=== PATIENT | female | born 1975 | race Caucasian/White ===

== ENCOUNTER 2016-10-19 10:10 | Emergency (ER) | payer OTHER ==
[~2016-10-19] VITALS: Ht 160 cm; Wt 144.3 kg
[~2016-10-19 10:10] MED LIST: AMLO10TA2 PO; CHOL1000 PO; FLUT0.15 NAE; HYDR25TA4 PO; LISI40TA PO; PROP60CA5 PO
[2016-10-19 10:13] VITALS: TEMP 36.6; Ht 160 cm; Wt 144.3 kg
[2016-10-19] MEDS ORDERED: CETI10TA10 PO (10:26)
--- NOTE | 2016-10-19 11:28 | DIAGNOSTIC IMAGING REPORT ---
CHEST ONE VIEW PORTABLE CLINICAL HISTORY: Hypertension COMPARISON STUDY: No previous studies for comparison. FINDINGS: The patient is rotated. No pneumothorax or pleural effusion is present. There is no consolidation. Mild cardiomegaly is noted. Pulmonary vascularity is within normal limits. IMPRESSION: 1. No acute cardiopulmonary findings. 2. Mild cardiomegaly. 3. Rotated study. Electronically signed by: Humphrey Joseph M.D. 10/19/2016 11:27 AM Dictated Date/Time: 10/19/2016 11:26 AM
[2016-10-19 12:02] LABS: BASO % 0.5 %; BASO ABS # 0.03 K/uL (0-0.2); COMPLETE YES; EOS % 7.6 %; IG% 0.3 %; LYMPH % 25.9 %; LYMPH ABS # 1.59 K/uL (1.2-3.4); MEAN CELL VOLUME 84.3 fL (80-100); MEAN CORPUSCULAR HEMOGLOBIN 26.8 pg (25-34); MEAN CORPUSCULAR HGB CONC 31.8 g/dl (32-36); MEAN PLATELET VOLUME 9.3 fL (7.4-10.4); MONO % 8.5 %; NEUT % 57.2 %; PLATELET COUNT 257 K/uL (130-400); RED BLOOD COUNT 4.51 M/uL (4.2-5.4); WHITE BLOOD COUNT 6.15 K/uL (4.8-10.8)
[2016-10-19 12:20] LABS: BUN/CREATININE RATIO 16.4 (10-20); CALCIUM 8.9 mg/dl (8.5-10.1); CREATININE 0.72 mg/dl (0.60-1.20); MAGNESIUM 2.3 mg/dl (1.8-2.4); POTASSIUM 3.4 mmol/L (3.5-5.1)
[2016-10-19 12:23] LABS: ALB/GLOB RATIO 0.9 (0.9-2)
[2016-10-19 12:23] LABS: URINE APPEARANCE CLEAR (CLEAR); URINE BILIRUBIN NEG (NEG); URINE COLOR YELLOW; URINE NITRITE NEG (NEG); URINE PH 8.5 (4.5-7.5); URINE SPECIFIC GRAVITY 1.009 (1.000-1.030); UROBILINOGEN NEG (NEG); ZZUR CULT IF INDIC CLEAN CATCH NO
[2016-10-19 12:29] LABS: MANUAL MICROSCOPIC REQUIRED? NO; REVIEW REQ? NO
[2016-10-19 12:32] VITALS: O2SAT 95
[2016-10-19] MEDS ORDERED: ACETAMINOPHEN 500 MG TAB PO STA (12:35)
--- NOTE | 2016-10-19 12:35 | DIAGNOSTIC IMAGING REPORT ---
CT SCAN OF THE BRAIN WITHOUT IV CONTRAST CLINICAL HISTORY: Hypertension. Headache. COMPARISON STUDY: MRI of the brain dated 04/08/2009. TECHNIQUE: Unenhanced axial CT scan of the brain is performed from the vertex to the skull base. Automated dose control exposure was utilized. The skull base was scanned twice due to motion artifact. CT DOSE: 767.83 mGy.cm FINDINGS: Brain parenchyma: There are scattered foci of low-attenuation suggested within the subcortical and periventricular white matter. These was not seen on the 04/08/2009 MRI. The brain parenchyma is otherwise normal in appearance. There is no hemorrhage, mass effect, or evidence of acute territorial ischemia by CT criteria. Burnett-white matter is preserved. No extra-axial fluid collection is seen. Ventricles, sulci, cisterns: Normal in configuration. Intracranial vasculature: The visualized intracranial vasculature at the skull base is normal in appearance. Calvarium: Unremarkable. Sinuses and mastoids: The visualized paranasal sinuses are clear. The mastoid air cells are well pneumatized. Orbits: The bony orbits are grossly intact. IMPRESSION: 1. There is no hemorrhage, mass effect, or evidence of acute territorial ischemia by CT criteria. 2. There are scattered foci of diminished attenuation suggested within the subcortical and periventricular white matter. These were not appreciated on the 2008 MRI examination and may attention early represent microangiopathic change or could also be seen in the setting of a demyelinating disorder such as multiple sclerosis. Consider contrast-enhanced MRI of the brain for further assessment. Electronically signed by: Luis Doshi M.D. 10/19/2016 12:34 PM Dictated Date/Time: 10/19/2016 12:30 PM
[2016-10-19 14:30] LABS: PREG INTERNAL NEGATIVE QC NEG CLEAR BACKGROUND; PREG INTERNAL POSITIVE QC POS CONTROL LINE
--- NOTE | 2016-10-19 15:22 | DIAGNOSTIC IMAGING REPORT ---
MRI OF THE BRAIN WITHOUT AND WITH IV CONTRAST CLINICAL HISTORY: Hypertension, headaches, abnormal CT scan. COMPARISON STUDY: CT scan dated 10/19/2016, MRI the brain dated 04/08/2009 TECHNIQUE: MRI of the brain was performed from the vertex to the skull base utilizing various T1 and T2 weighted sequences. Following the IV administration of 14 mL of Gadavist contrast, additional enhanced images were obtained. FINDINGS: Sagittal T1, axial diffusion, proton density and T2 weighted axial, coronal FLAIR, and pre and post axial T1-weighted images were acquired. These were supplemented with post gadolinium coronal T1 weighted images. No intra or extra-axial mass lesions are visualized. Axial diffusion-weighted images reveal no evidence of acute or subacute infarction. There is no evidence of ventricular dilatation. Proton density T2-weighted and FLAIR images reveal multiple scattered foci of increased T2 and FLAIR signal within the periventricular and subcutaneous cortical white matter. These are new when compared the prior 2008 study. They are greater than expected for age. Likely diagnostic considerations include a demyelinating process, vasculitis, or small vessel ischemic change. There is no pathologic enhancement and no mass effect. There are no abnormal flow voids. There is no evidence of pathologic enhancement. IMPRESSION: 1. No evidence of intracranial mass 2. No evidence of acute or subacute infarction 3. Nonspecific foci of increased T2 and FLAIR signal within the white matter, greater than expected for age. Electronically signed by: Rey oMntez M.D. 10/19/2016 3:21 PM Dictated Date/Time: 10/19/2016 3:16 PM
--- NOTE | 2016-10-19 16:17 | EMERGENCY ROOM VISIT NOTE ---
History First contact with patient: 10:54 Chief Complaint: HYPERTENSION Stated Complaint: HYPERTENSION History of Present Illness The patient is a 41 year old female who presents to the Emergency Room via ambulance with complaints of "hypertension". The patient states that around 9 AM she was to follow-up with her nutrition DrJuan C constantino [facility]. She was to see Dr. Fernandez for a checkup. She states that she felt very tired, and when he checked her blood pressure it was very high and she also had a headache. She states that the blood pressure over there was 230 systolic. She notes that she has been working 7 days straight, for the past 4 weeks for roughly 16 hours per day. She states that she has not had a day off. She states that she has been tired because of the work, and is upset because she was forced to go to her employer to rest for a day off because she was tired. She states that today she woke up with a headache but notes that she frequently will get headaches. She points to the right side of her head around her ears location of pain. She follows with Dr. russell for headaches. She states she has a history of hypertension of which she takes lisinopril and propranolol. She notes that she is taking these today. She denies any history of heart problems, history of blood clots, chest pain, shortness of breath, fevers, chills, urinary symptoms, dizziness or lightheadedness. Her only symptoms currently are a headache. Review of Systems A complete 10-point Review of Systems was discussed with the patient, with pertinent positives and negatives listed in the History of Present Illness. All remaining Review of Systems questions can be considered negative unless otherwise specified. Past Medical/Surgical History Medical Problems: (1) Diab Nola Wo Compl, Type Ii Or Unspec Type, Not Uncntrld (2) Dysmetabolic Syndrome X (3) Esophageal Reflux (4) Hyperlipidemia, Unspecified (5) Hypertension Nos (6) Obesity, Nos (7) Polycystic Ovaries Family History Diabetes, hypertension, cancer, gallbladder disease. Social History Smoking Status: Never Smoker Alcohol Use: none Marital Status: single Occupation Status: employed Social History: patient is currently employed. She lives in [place]. Current/Historical Medications Scheduled Amlodipine Besylate (Norvasc), 10 MG PO DAILY Cetirizine Hcl (Zyrtec), 10 MG PO HS Fluticasone Propionate (Nasal) (Flonase Allergy Relief), 1 SPRAY LOPEZ DAILY Hydrochlorothiazide (Hctz), 25 MG PO DAILY Lisinopril (Zestril), 40 MG PO DAILY Propranolol La (Inderal La), 120 MG PO DAILY Allergies Coded Allergies: Cortisone (Unverified Allergy, Severe, THROAT SWELLING,HIVES, 10/19/16) Penicillins (Unverified Allergy, Intermediate, throat swelling, 11/28/15) Sumatriptan (Unverified Allergy, Unknown, PRESSURE IN HEAD, , 11/28/15) Physical Exam Vital Signs Date Time Temp Pulse Resp B/P Pulse Ox O2 Delivery O2 Flow Rate FiO2 10/19/16 16:32 81 16 180/115 95 Room Air 10/19/16 15:45 83 18 177/98 95 Room Air 10/19/16 13:41 79 10/19/16 13:28 166/113 10/19/16 12:32 74 16 168/94 94 Room Air 10/19/16 12:32 95 Room Air 10/19/16 11:55 208/119 10/19/16 10:19 85 10/19/16 10:13 36.6 90 22 219/121 96 Room Air Physical Exam VITAL SIGNS - Vital signs and nursing notes were reviewed. Patient is hypertensive at 219/121, afebrile, non-tachycardic and is saturating well on room air 96%. GENERAL -41-year-old female appearing her stated age who is in no acute distress. Clinically she appears nontoxic. Communicates well with provider and answers questions appropriately. SKIN - Without rashes. HEAD - NC/AT. EYES - PERRL with EOMI bilaterally. Sclera anicteric. Palpebral conjunctiva pink and moist with no injection noted. EARS - No deformities of external structures noted on gross examination bilaterally. No pain elicited with palpation of the tragus bilaterally. External auditory canals without discharge or otorrhea. Tympanic membranes pearly burnett without retraction or bulging. No fluid or purulent material visualized behind the TM. Handle of malleus, umbo, cone of light, pars tensa/ flaccid all easily visualized. NOSE - Midline and without cyanosis. No epistaxis or purulent drainage noted. Septum midline without deviation or septal hematoma noted. MOUTH/OROPHARYNX - Without perioral cyanosis. Buccal mucosa pink and moist and without leukoplakia. Tongue midline with equal elevation of palate bilaterally. No tonsillar hypertrophy, erythema, or exudates noted. fair dentition noted. NECK - Neck with FROM. Supple to palpation. No lymphadenopathy noted. No nuchal rigidity. No meningismus or signs of encephalitis. LUNGS - Chest wall symmetric without accessory muscle use, intercostals retractions, or central cyanosis. Normal vesicular breath sounds CTA B/L. No wheezes, rales, or rhonchi appreciated. CARDIAC - RRR with S1/S2. No murmur, rubs, or gallops appreciated. EXTREMITIES - No clubbing or peripheral cyanosis. No pretibial edema present. +5 /5 strength noted in UE/LE bilaterally. NEUROLOGIC - Cranial nerves II through XII grossly intact. Sensory intact to light touch throughout. Patellar reflexes +2/4. PSYCH - A&Ox3 and cooperates fully with examiner. Pt is very pleasant and interacts well with examiner. Medical Decision & Procedures ER Provider Diagnostic Interpretation: CHEST ONE VIEW PORTABLE CLINICAL HISTORY: Hypertension COMPARISON STUDY: No previous studies for comparison. FINDINGS: The patient is rotated. No pneumothorax or pleural effusion is present. There is no consolidation. Mild cardiomegaly is noted. Pulmonary vascularity is within normal limits. IMPRESSION: 1. No acute cardiopulmonary findings. 2. Mild cardiomegaly. 3. Rotated study. Electronically signed by: Humphrey Joseph M.D. 10/19/2016 11:27 AM Dictated Date/Time: 10/19/2016 11:[address] SCAN OF THE BRAIN WITHOUT IV CONTRAST CLINICAL HISTORY: Hypertension. Headache. COMPARISON STUDY: MRI of the brain dated 04/08/2009. TECHNIQUE: Unenhanced axial CT scan of the brain is performed from the vertex to the skull base. Automated dose control exposure was utilized. The skull base was scanned twice due to motion artifact. CT DOSE: 767.83 mGy.cm FINDINGS: Brain parenchyma: There are scattered foci of low-attenuation suggested within the subcortical and periventricular white matter. These was not seen on the 04/08/2009 MRI. The brain parenchyma is otherwise normal in appearance. There is no hemorrhage, mass effect, or evidence of acute territorial ischemia by CT criteria. Burnett-white matter is preserved. No extra-axial fluid collection is seen. Ventricles, sulci, cisterns: Normal in configuration. Intracranial vasculature: The visualized intracranial vasculature at the skull base is normal in appearance. Calvarium: Unremarkable. Sinuses and mastoids: The visualized paranasal sinuses are clear. The mastoid air cells are well pneumatized. Orbits: The bony orbits are grossly intact. IMPRESSION: 1. There is no hemorrhage, mass effect, or evidence of acute territorial ischemia by CT criteria. 2. There are scattered foci of diminished attenuation suggested within the subcortical and periventricular white matter. These were not appreciated on the 2009 MRI examination and may attention early represent microangiopathic change or could also be seen in the setting of a demyelinating disorder such as multiple sclerosis. Consider contrast-enhanced MRI of the brain for further assessment. Electronically signed by: Luis Doshi M.D. 10/19/2016 12:34 PM Dictated Date/Time: 10/19/2016 12:30 PM MRI OF THE BRAIN WITHOUT AND WITH IV CONTRAST CLINICAL HISTORY: Hypertension, headaches, abnormal CT scan. COMPARISON STUDY: CT scan dated 10/19/2016, MRI the brain dated 04/08/2009 TECHNIQUE: MRI of the brain was performed from the vertex to the skull base utilizing various T1 and T2 weighted sequences. Following the IV administration of 14 mL of Gadavist contrast, additional enhanced images were obtained. FINDINGS: Sagittal T1, axial diffusion, proton density and T2 weighted axial, coronal FLAIR, and pre and post axial T1-weighted images were acquired. These were supplemented with post gadolinium coronal T1 weighted images. No intra or extra-axial mass lesions are visualized. Axial diffusion-weighted images reveal no evidence of acute or subacute infarction. There is no evidence of ventricular dilatation. Proton density T2-weighted and FLAIR images reveal multiple scattered foci of increased T2 and FLAIR signal within the periventricular and subcutaneous cortical white matter. These are new when compared the prior 2008 study. They are greater than expected for age. Likely diagnostic considerations include a demyelinating process, vasculitis, or small vessel ischemic change. There is no pathologic enhancement and no mass effect. There are no abnormal flow voids. There is no evidence of pathologic enhancement. IMPRESSION: 1. No evidence of intracranial mass 2. No evidence of acute or subacute infarction 3. Nonspecific foci of increased T2 and FLAIR signal within the white matter, greater than expected for age. Electronically signed by: Rey Mnotez M.D. 10/19/2016 3:21 PM Dictated Date/Time: 10/19/2016 3:16 PM Laboratory Results 10/19/16 11:45 Red Blood Count 4.51, Mean Corpuscular Volume 84.3, Mean Corpuscular Hemoglobin 26.8, Mean Corpuscular Hemoglobin Concent 31.8, Mean Platelet Volume 9.3, Neutrophils (%) (Auto) 57.2, Lymphocytes (%) (Auto) 25.9, Monocytes (%) (Auto) 8.5, Eosinophils (%) (Auto) 7.6, Basophils (%) (Auto) 0.5, Neutrophils # (Auto) 3.52, Lymphocytes # (Auto) 1.59, Monocytes # (Auto) 0.52, Eosinophils # (Auto) 0.47, Basophils # (Auto) 0.03 10/19/16 11:45 Test 10/19/16 11:45 10/19/16 11:51 10/19/16 12:05 10/19/16 14:36 White Blood Count 6.15 K/uL (4.8-10.8) Red Blood Count 4.51 M/uL (4.2-5.4) Hemoglobin 12.1 g/dL (12.0-16.0) Hematocrit 38.0 % (37-47) Mean Corpuscular Volume 84.3 fL (80-100) Mean Corpuscular Hemoglobin 26.8 pg (25-34) Mean Corpuscular Hemoglobin Concent 31.8 g/dl (32-36) Platelet Count 257 K/uL (130-400) Mean Platelet Volume 9.3 fL (7.4-10.4) Neutrophils (%) (Auto) 57.2 % Lymphocytes (%) (Auto) 25.9 % Monocytes (%) (Auto) 8.5 % Eosinophils (%) (Auto) 7.6 % Basophils (%) (Auto) 0.5 % Neutrophils # (Auto) 3.52 K/uL (1.4-6.5) Lymphocytes # (Auto) 1.59 K/uL (1.2-3.4) Monocytes # (Auto) 0.52 K/uL (0.11-0.59) Eosinophils # (Auto) 0.47 K/uL (0-0.5) Basophils # (Auto) 0.03 K/uL (0-0.2) RDW Standard Deviation 47.3 fL (36.4-46.3) RDW Coefficient of Variation 15.4 % (11.5-14.5) Immature Granulocyte % (Auto) 0.3 % Immature Granulocyte # (Auto) 0.02 K/uL (0.00-0.02) Anion Gap 5.0 mmol/L (3-11) Est Creatinine Clear Calc Drug Dose 146.2 ml/min Estimated GFR () 121.4 Estimated GFR (Non- 104.8 BUN/Creatinine Ratio 16.4 (10-20) Calcium Level 8.9 mg/dl (8.5-10.1) Magnesium Level 2.3 mg/dl (1.8-2.4) Total Bilirubin 0.4 mg/dl (0.2-1) Aspartate Amino Transf (AST/SGOT) 50 U/L (15-37) Alanine Aminotransferase (ALT/SGPT) 78 U/L (12-78) Alkaline Phosphatase 96 U/L (45-117) Total Protein 7.9 gm/dl (6.4-8.2) Albumin 3.8 gm/dl (3.4-5.0) Globulin 4.1 gm/dl (2.5-4.0) Albumin/Globulin Ratio 0.9 (0.9-2) Human Chorionic Gonadotropin, Qual NEG (NEG) AF-Agb-F-Type Natriuretic Peptide 229 pg/ml (0-450) Urine Color YELLOW Urine Appearance CLEAR (CLEAR) Urine pH 8.5 (4.5-7.5) Urine Specific [place]wick 1.009 (1.000-1.030) Urine Protein NEG (NEG) Urine Glucose (UA) NEG (NEG) Urine Ketones NEG (NEG) Urine Occult Blood NEG (NEG) Urine Nitrite NEG (NEG) Urine Bilirubin NEG (NEG) Urine Urobilinogen NEG (NEG) Urine Leukocyte Esterase NEG (NEG) Bedside Troponin I 0.010 ng/ml (0-0.045) Test 10/19/16 16:27 Bedside Glucose 82 mg/dl (70-90) Medications Administered Medications (Trade) Dose Ordered Sig/Omari Route Start Time Stop Time Status Last Admin Dose Admin Acetaminophen (Tylenol Tab) 500 mg NOW STAT PO 10/19/16 12:35 10/19/16 12:36 DC 10/19/16 12:39 500 MG Medical Decision Patient was seen and evaluated as above. After obtaining a thorough history and physical examination IV access was initiated and the above workup was performed. Patient does have a history of hypertension and notes that typically her systolic pressure is in the 170s. Upon presentation here her systolic is 219, which is 11 points lower than from where she was retrieved by the ambulance. In review of her blood work, her CBC reveals no leukocytosis or anemia, potassium slightly low at 3.4, carbon dioxide 33, random glucose level 62, AST elevated at 50, globulin 4.1. Urine unremarkable. I do not believe that antihypertensive medication at this time is warranted she did begin to show improved blood pressure readings throughout her stay. She was initially at 219/121, and then was reevaluated and found to be 208/119, and then dropped to 168/94, and then 166/113. Because the patient stated that she typically is in the 170s I do not feel that additional medication at this time in the emergency department will be of benefit, and may actually be harmful. I do believe that being at this level is more appropriate than initial. She has already dropped over 40 systolic points since her initial reading at the office. Prior to departure she did reveal elevated to 180/115 however she never had any chest pain or shortness of breath and this is only 10 points above her typical as per subjective statement. Chest x-ray reveals mild cardiomegaly without evidence of acute process. CT scan of the head was obtained due to hypertension and headache. This did reveal a questionable abnormality therefore MRI was pursued as per recommendation by the radiologist. MRI does reveal a nonspecific foci of increased T2 and FLAIR signal within the white matter, greater than expected for age. I did discuss this my attending and we both believe that the patient should follow-up with neurology for further evaluation and management but do not believe that at this time the patient warrants inpatient management. Her EKG here reveals normal sinus rhythm with a nonspecific T-wave abnormality. There is no previous for comparison. The patient's troponin was negative 2. Discussion was had with the patient regarding inpatient admission versus discharge, and she respect we declined admission and would like to be discharged. Due to this is appropriate , however the patient does need to follow-up in the outpatient setting as soon as possible for further evaluation and management of her high blood pressure and comorbidities as she was informed that she is a high risk for stroke and heart attack. She was educated upon management today's findings, was educated on worrisome symptoms which to return, had questions answered prior to discharge and was discharged home in good condition. For her pain she was given 500 mg of acetaminophen. In the evaluation and treatment of this patient, the following differential diagnoses were considered: Concussion, Contrecoup Injury, Brain Tumor, Depression, Encephalitis, Hypothyroidism, Meningitis, CVA, TIA, Migraine, Cluster Headache, Intracranial Abnormality, Intracranial Hemorrhage, Subdural Hematoma, Subarachnoid Hemorrhage, Hydrocephalus, myocardial infarction, pulmonary embolism, among others. Impression Primary Impression: Hypertension Additional Impressions: Hypokalemia Elevated AST (SGOT) Abnormal MRI of head Departure Information Dispostion Home / Self-Care Condition GOOD Referrals Carrie Judge M.D. (PCP) Leslee Santacruz M.D. Patient Instructions Hypokalemia [place], [facility] Additional Instructions You were seen in the emergency Department for high blood pressure and headache. CT scan of the brain did reveal slight abnormality therefore MRI was pursued. This revealed: Nonspecific foci of increased T2 and FLAIR signal within the white matter, greater than expected for age. It is recommended you follow up with neurology for this finding, please call the number listed above to schedule follow-up for further management and care. ( Dr. Santacruz) Your potassium was low (hypokalemia). Please refer to the attached handout for foods high in this electrolyte. There was slight abnormality of your EKG as we discussed, please follow-up with your family doctor regarding this. Your xray revealed mild heart enlargement. Please follow up with your family doctor for this. Please eat a healthy and well balanced diet. Please return to emergency department with any new/concerning symptoms. It is recommended you follow up with her family doctor for further evaluation and management of her high blood pressure. Please return to the emergency department with any new/concerning symptoms. Problem Qualifiers
[2016-10-19 16:32] VITALS: BP 180/115; PULSE 81; O2SAT 95
== END 2016-10-19 16:52 | disposition home or self-care (01) ==
LOC: EDBD 10:10 → C.EDB 10:11
DX: I10 Essential (primary) hypertension (principal); E87.6 Hypokalemia; R74.0 Nonspecific elevation of levels of transaminase and lactic acid dehydrogenase [LDH]; R93.0 Abnormal findings on diagnostic imaging of skull and head, not elsewhere classified; Z79.899 Other long term (current) drug therapy; E11.9 Type 2 diabetes mellitus without complications; E66.9 Obesity, unspecified; Z68.43 Body mass index [BMI] 50.0-59.9, adult; E78.5 Hyperlipidemia, unspecified; Z83.3 Family history of diabetes mellitus; Z82.49 Family history of ischemic heart disease and other diseases of the circulatory system

== ENCOUNTER → 2016-12-20 | Outpatient (CLI) | payer OTHER ==
[~2016-12-20] MED LIST changes: +CETI10TA10 PO; -CHOL1000 PO
--- NOTE | 2016-12-20 16:07 | PAP/PSG TECHNICIAN REPORT ---
[facility] Energy Project Manager Polysomnogram Report Study name: None Report date: 12/20/2016 Study date: 12/20/2016 Referring Physician: Zackary Pulliam M.D. Name: HEIDI RUSTAM Interpreting Physician: Ezekiel Pulliam M.D. Date of : 1975 Energy Project Manager: Giulia Marino [facility]. Sex: Female Age: 41 StudyType: PSG Weight: 310 lbs Height: 41 years, Height 5' 3" Neck Circum: BMI: 54.91 Medications: Lisinopril 40mg, Carvedilol 12.5mg, Amlodipine 10mg, Naproxen 500mg, Xbcqkmpvhh-pseondyucyxml-hyasnjld 50-325-40mg, Gabapentin 300mg, Promethazine 25mg, Tramadol 50mg, Fluticasone 50mcg/act, Azelastine HCL 0.1%, Pantoprazole 40mg, Nortriptyline HCL 50mg Patient History Patient has a history of JAMAAL in sleep study from 06/03/16 (AHI=31.3), she did not meet compliance requirements for her c-pap as per her insurance, and had to return machine. She stated that she has been sick and unable to wear it. She is here today to requalify for c-pap. A split study will be done if patient qualifies. Patient is also complaining of a rash that is very itchy today. ESS=3/24 neck circumference is 16.75inches. Patient has bed in semi-upright position, she stated that she sleeps propped up on a couch due to drainage. Parameters Monitored NPSG: E1-M2, E2-M1, Fp1-M2, Fp2-M1, F3-M2, F4-M2, F4-M1, C3-M2, C4-M2, C4-M1, O1-M2, O2-M2, O2-M1, T3-M2, T4-M1, P3-M2, P4-M1, CHIN1, CHIN2, HR, EKG, Legs, PFLOW, SNOR, FLOW, CFLOW, Tidal Volume, THOR, ABDO, SpO2, PLTH, CPRESS, ETCO2 Wave, ETCO2, pH Sleep Architecture Sleep Stages Time at Lights Off 8:57:45 AM STAGES Time (min.) TST (%) Time at Lights On 3:47:15 PM Wake 76.5 -- Total Recording Time (TRT) 410.00 min. N1 20.0 6 Total Sleep Period (TSP) 406.0 min. N2 182.5 55 Total Sleep Time (TST) 333.0min. N3 57.5 17 Awake Time 76.5 min. REM 73.0 22 Wake after Sleep Onset 73.0 min. Sleep Efficiency (SE) 81 % Sleep Onset Latency (NIMA) 3.5 min. Number of Stage 1 Shifts None Awakenings 17 Stage Changes 98 Number of REM periods 3 REM 73.0 22 REM Latency 85.5 min. NREM 260.0 78 Body Position Analysis Supine Right Left Side Prone Vertical Total Sleep Time (min.) 171.0 124.8 69.5 194.25 0.0 28.0 Total Sleep Time (%) 37% 37% 21% 58 0% 100% Total Sleep Time REM (min.) 22.5 37.0 13.5 None 0.0 0.0 Total Sleep Time NREM (min.) 102.0 87.8 56.0 None 0.0 14.3 Intermittent Wake (min.) 46.5 5.3 11.0 None 0.0 13.7 Total Sleep Period (%) 41% None None None None None Arousals Myoclonus (PLM) * Events Count Index Events Count Index Spontaneous 11 2 Events Awake (PLMW) 1 0.8 Respiratory 2 0.4 Events Asleep w/ Arousal (PLMA) 3 0.5 PLM 3 1 Events Asleep w/o Arousal (PLMS) 53 9.5 Snoring 12 2 Total Asleep 56 10.1 Total 27 5 Total 57 8 Respiratory Analysis * CA OA MA CH H RERA Total Count 0 6 0 0 76 0 82 Index 0.0 1.1 0.0 0 13.7 0 14.8 Mean Duration 0.0 14.8 0.0 0.00 17.6 0.0 17.4 Longest Duration 0.0 16.9 0.0 0.00 0.0 0.0 42.9 Respiratory Event Summary Total Supine ~Supine Right Left Prone REM NREM Apneas Count 6 5 1 0 1 N/A 3 3 Index 1.1 2 0 0.0 0.9 N/A 2 1 Hypopneas (4% Desat) Count 76 26 50 36 14 N/A 64 12 Index 13.7 12.5 14 17.3 12.1 N/A 52.6 2.8 Apneas & All Hypopneas Count 82 31 51 36 15 N/A 67 15 Index 14.8 15 15 17 13 N/A 55.1 3.5 Respiratory Events (Jamb Cutter+All Hyp+RERA) Count 82 31 51 36 15 N/A 67 15 Index 14.8 15 15 17.3 12.9 N/A 55.1 3.5 Respiratory Related Arousal Count 2 31 0 0 0 N/A 0 2 Index 0.4 1 0 0 0 N/A 0 0 Snoring Analysis Supine Right Left Prone REM NREM Total Snore duration 88.0 min Snores count 893 1,034 572 N/A 362 2,291 2,653 Snore mean duration 2.0 Sec Snores index 430 497 494 N/A 297.5 528.7 478.0 TST with snoring (%) 26.4% Desaturation Event Summary: Minimum %SpO2 Event Count Mean/Min/Max Duration(sec.) Desaturation Index % Time In Bed > 90 76 27.9 / 5.3 / 57.0 14.8 79.9 86 - 90 23 21.2 / 5.3 / 57.0 20.5 17.5 81 - 85 2 21.8 / 15.8 / 27.8 15.3 2.0 76 - 80 0 N/A 0.0 0.5 71 - 75 0 N/A 0.0 0.1 66 - 70 0 N/A 0.0 0.0 61 - 65 0 N/A 0.0 0.0 56 - 60 0 N/A 0.0 0.0 51 - 55 0 N/A 0.0 0.0 < 50 0 N/A 0.0 0.0 Total REM NREM Awake <50% 0.0 min. 0.0 min. 0.0 min. 0.0 min. 51 - 60% 0.0 min. 0.0 min. 0.0 min. 0.0 min. 61 - 70% 0.2 min. 0.2 min. 0.0 min. 0.0 min. 71 - 80% 2.2 min. 1.7 min. 0.4 min. 0.0 min. 81 - 90% 75.3 min. 27.6 min. 44.2 min. 3.4 min. 91 - 100% 308.2 min. 43.5 min. 215.2 min. 49.5 min. Average 92 90 92 93 Minimum SpO2 69 69 77 83 Desaturation Event Index 12.6 50.1 5.8 0.0 # Desat. Events below 89% 55 51 4 N/A Time(%) with Saturation below 89% 5.8 5.0 0.8 0.1 Time(min.) with Saturation below 89% 22.4 19.2 2.9 0.3 Time (mins) REM (mins) NREM (mins) % of TST SpO2 Below 90% 75 59 N16 11.1 SpO2 Below 88% 24 0 0 5 Heart Rate Analysis Min (bpm) Max (bpm) Average (bpm) Awake 64 255 85 NREM 63 93 78 REM 70 97 83 Overall 63 97 79 Supplemental O2 Values Minimum O2 level: None Value Start Time End Time Energy Project Manager Comments Ms. Lawton slept in the supine, left and right positions with HOB elevated into a semi-upright position, she did raise it a little more after her second bathroom trip. No cardiac arrhythmias or bruxism were noted. Snoring was noted and scored as a 3 on a scale of 0 through 5 (0=no snoring, 5=snoring loud enough to be heard through a closed door or down the hallway). Hypopneas and apneas were seen, but mainly during REM, making it impossible for her to qualify for a split study. Patient awoke to use restroom 2 times during the test and was awoken once due to her phone ringing. Patient may benefit from an auto c-pap at home, rather than returning for a titration study, due to her sleep and work schedule. Ms. Lawton stated that she slept better than usual cause she was tired and she got to sleep in a bed. Patient seemed to sleep well, but was woke up around 2:10pm by her phone and had difficulty getting back to sleep. The final report will be interpreted and signed by a sleep physician. The completed physician report will then be placed in the patient medical record. Therapy (cm H2O) 0 TIB (min.) 409.5 TST (min.) 333.0 Sleep Onset (min.) 3.5 REM Onset From Sleep (min.) 85.5 Sleep Efficiency % 81 Wakefulness (%) 19 Wakefulness (min.) 76.5 NREM 1 (%) 6 NREM 1 (min.) 20.0 NREM 2 (%) 55 NREM 2 (min.) 182.5 NREM 3 (%) 17 NREM 3 (min.) 57.5 REM (%) 22 REM (min.) 73.0 # Arousals 27 Arousal Index 5 # Snore 2,653 Snore Index 478.0 AHI 14.8 AHI Supine 15 AHI Non-Supine 15 NREM AHI 3.5 REM AHI 55.1 RDI 14.8 # Obstructive Apnea 6 # Central Apnea 0 # Mixed Apnea 0 # Hypopneas 76 RERAs 0 Total Respiratory Events 82 Time Below SpO2 89% (min.) 22.1 Mean NREM SpO2 (%) 92 Mean REM SpO2 (%) 90 Mean Sleep SpO2 (%) 91 Min NREM SpO2 (%) 77 Min REM SpO2 (%) 69 Position Supine (min.) 171.0 Position Non-supine (min.) 208.5 LM Index Sleep 10.1 LM Index NREM 10.4 LM Index REM 9.0 Mean Heart Rate (bpm) 79 Min Heart Rate (bpm) 63
--- NOTE | 2017-01-02 07:36 | POLYSOMNOGRAPH REPORT ---
REFERRING PERSON: Dr. Barby Pulliam. SHUTTLE ROUTE VEHICLE OPERATOR: Giulia Marino. Ms. Lawton is a 41-year-old female who is diagnosed with obstructive sleep apnea on 06/03/2016. Her AHI at that time was 31.3. She did not meet compliance to keep her CPAP at that time. She states she had been sick with an upper respiratory infection and was unable to wear it. She returned to the sleep lab to try to qualify for CPAP equipment. [place] sleepiness scale score on the evening of this study is 3. BMI is 54.91. Following the technical and digital specifications of the [place] [employer] (AASM) a standard diagnostic polysomnogram was performed monitoring EEG, EOG, EMG (chin and leg deviations), oxygen saturation, body position, digital video, respiratory effort and airflow. The sleep Stage and event scoring was based on the AASM Manual for the Scoring of Sleep and Associated Events 2007 edition. Apneas are defined as a drop in the peak thermal sensor excursion by >90% of baseline for at least 10 seconds. Hypopneas were scored using the 4% oxygen desaturation rule (4A-Medicare) and a decrease in the nasal pressure excursions by >30% of baseline for at least 10 seconds. Respiratory effort-related arousal (RERA's) is defined as a sequence of breaths lasting at least 10 seconds characterized by increasing respiratory effort or flattening of the nasal pressure waveform leading to an arousal from sleep when the sequence of breaths does not meet criteria for an apnea or hypopnea. Apnea Hypopnea index (AHI) is defined as the number of apneas and hypopneas occurring in an hour of sleep. Respiratory disturbance index (RDI) is defined as the number of apneas, hypopneas, and RERA's occurring in an hour of sleep. Ms. Lawton' total sleep period time was 406 minutes. Total sleep time was 333 minutes. Sleep efficiency was 81%. Latency to sleep onset was 3.5 minutes with wake after sleep onset of 73 minutes. Total non-REM sleep time was 260 minutes. She spent 6% of that time in N1 sleep, 55% in N2 sleep and 17% in N3 sleep. REM latency was 85.5 minutes. Total REM sleep time was 73 minutes or 22% of total sleep time. There were 27 cortical arousals from sleep. Eleven of these arousals were spontaneous, 12 were due to snoring and 2 were due to respiratory events, and 3 were due to periodic limb movements. There were 56 periodic limb movements noted on this test. Limb movement index was 10.1. Limb movement with arousal index was 0.5. There were no central, 6 obstructive and no mixed apneas on this test. There were 76 hypopnea and no RERA. Apnea-hypopnea index was 14.8. Supine AHI was 15, non-supine AHI was 15 REM AHI was 55.1. There were 2653 snoring events recorded. Total sleep time with snoring was 26.4%. Mean saturation was 92%, but there were desaturations to 69% with respiratory events. Saturations were less than 89 for 22.4 minutes of recorded time. There was no cardiac ectopy noted on this study. Heart rates ranged from a low of 63 beats per minute to a high of 97 beats per minute. End-tidal CO2 was not recorded on this test. IMPRESSION AND PLAN: A 41-year-old female with morbid obesity and hypertension with evidence of mild sleep apnea on this sleep study, but severe in REM sleep. She had previously been diagnosed with JAMAAL and an AHI of 31.3. This patient would benefit from positive airway pressure therapy. She should be started on cpap therapy. Once on optimal pressure, an NPO should be preformed to ensure her that her hypoxemia resolves with CPAP alone. NICHELLE
== END | disposition home or self-care (01) ==
LOC: C.NEUR 08:17
PROVIDERS: ATTEND Family Medicine
DX: G47.33 Obstructive sleep apnea (adult) (pediatric) (principal)

== ENCOUNTER → 2017-05-05 | Outpatient (CLI) | payer OTHER ==
--- NOTE | 2017-05-05 12:02 | DIAGNOSTIC IMAGING REPORT ---
VIDEO SWALLOW HISTORY: DYSPHAGIA TECHNIQUE: Video fluoroscopic evaluation of swallowing was performed in the AP and lateral projections by the speech pathology staff. The patient is fed nectar-thick and thin liquid barium, a barium coated wafer, and barium pudding. FLUOROSCOPY TIME: 1.5 minutes. A cine loop submitted. COMPARISON STUDY: None. FINDINGS: There is normal hyoid excursion and epiglottic deflection. No significant penetration or aspiration identified. Swallowing function is within normal limits. IMPRESSION: 1. No aspiration identified. 2. Please see the speech pathologist report for detailed findings and recommendations. Electronically signed by: Manuel Wolf M.D. 05/05/2017 12:01 PM Dictated Date/Time: 05/05/2017 11:59 AM
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
== END | disposition home or self-care (01) ==
LOC: C.RAD 10:49
PROVIDERS: ATTEND Physician Assistant
DX: R13.10 Dysphagia, unspecified (principal)

== ENCOUNTER → 2017-09-11 | Day surgery (SDC) | payer OTHER ==
[2017-09-07 14:56] VITALS: BMI 54.0
[~2017-09-11] VITALS: Ht 160 cm; Wt 138.6 kg
[~2017-09-11] MED LIST changes: -AMLO10TA2 PO; +ATOR-24 PO; +CARV25TA PO; -CETI10TA10 PO; +CETI10TA84 PO; -FLUT0.15 NAE; +FLUT50SP45; +HYDR-5688 PO; -HYDR25TA4 PO; +IRBE-39 PO; -LISI40TA PO; +LSX20 PO; +NAPR-1169 PO; +NRV/10; +PANT40TA PO; -PROP60CA5 PO; +TOPI50TA16 PO
[2017-09-11 08:29] VITALS: Ht 160 cm; Wt 138.6 kg
[2017-09-11 08:46] VITALS: BP 205/115; PULSE 76; TEMP 36.8; O2SAT 98
--- NOTE | 2017-09-11 09:21 | Progress Note ---
Progress Note Date of Service Sep 11, 2017. Progress Note Pt's case is rescheduled due to elevated BP with diastolic BP >120s during multiple readings. Pt has just had her BP meds adjusted. Case discussed with both Dr. Kaur and patient who are in agreement.
--- NOTE | 2017-09-11 10:23 | Progress Note ---
Progress Note Date of Service Sep 11, 2017. Progress Note Patient presented for upper endoscopy and was found by anesthesia to have high blood pressure. Given increased risk, case was cancelled. Patient has followup with PCP who was also messaged. Case will be rescheduled.
== END | disposition home or self-care (01) ==
LOC: C.GI 07:49
PROVIDERS: ATTEND Internal Medicine Gastroenterology
DX: R13.10 Dysphagia, unspecified (principal); I10 Essential (primary) hypertension; Z53.09 Procedure and treatment not carried out because of other contraindication

== ENCOUNTER → 2017-12-11 | Day surgery (SDC) | payer OTHER ==
[~2017-12-11] VITALS: Ht 160 cm; Wt 141.8 kg
[~2017-12-11] MED LIST changes: +DVN/160 PO; +FRS/40 PO; +HYDR-4717 PO; +PROPOFOL IV EMULSION 10 MG/ML 20 ML VIAL ONE; +SODIUM CHLORIDE 0.9% 500ML 500 ML IV ONE; +SPR25 PO
[2017-12-11 08:19] VITALS: Ht 160 cm; Wt 141.8 kg
--- NOTE | 2017-12-11 08:29 | Endo History and Physical ---
History & Physical Date of Service: December 11, 2017. Chief Complaint: dysphagia Referring Physician: History of Present Illness 42 yo presenting as outpt for evaluation of oropharyngeal dysphagia Past Surgical History Hx Cardiac Surgery: No Hx Internal Defibrillator: No Hx Pacemaker: No Hx Abdominal Surgery: Yes (GALLBLADDER SURGERY ) Hx of Implantable Prosthesis: No Hx Post-Op Nausea and Vomiting: Yes Hx Cancer Surgery: No Hx Thoracic Surgery: No Hx Orthopedic: No Hx Urinary Tract Surgery: No Social History Smoking Status: Never Smoker Hx Substance Use: No Hx Alcohol Use: No Allergies Coded Allergies: Cortisone (Verified Allergy, Severe, THROAT SWELLING,HIVES, 12/11/17) Penicillins (Verified Allergy, Intermediate, throat swelling, 12/11/17) Sumatriptan (Verified Allergy, Unknown, PRESSURE IN HEAD, , 12/11/17) Current Medications Reported Home Medications Medications Dose Route/Sig Max Daily Dose Days Date Category Dose Instructions Diovan (Valsartan) 160 Mg Tab 1 Tab PO DAILY 30 12/11/17 Reported Spironolactone 25 Mg Tab 25 Mg PO DAILY 12/11/17 Reported Lasix (Furosemide) 40 Mg Tab 40 Mg PO DAILY 12/11/17 Reported Apresoline (Hydralazine Hcl) 50 Mg Tab 25 Mg PO TID 12/11/17 Reported Amlodipine Besylate 10 Mg Tab 09/11/17 Reported [place] 5MG/325MG (Acetaminophen/Hydrocodone Bitart) Tab 1 Tablet PO TID PRN 09/07/17 Reported PRN PAIN Naprosyn (Naproxen) 500 Mg Tab 500 Mg PO QAM 09/07/17 Reported Zyrtec (Cetirizine HCl) 10 Mg Tab 10 Mg PO HS 09/07/17 Reported Allergy Nasal [place] 24 Ho (Fluticasone Propionate (Nasal)) 50 Mcg/Act Spr 2 Sprays NA BID 09/07/17 Reported Topamax (Topiramate) 50 Mg Tab 50 Mg PO BID 09/07/17 Reported Coreg (Carvedilol) 25 Mg Tab 25 Mg PO BID 09/07/17 Reported Lipitor (Atorvastatin Calcium) 40 Mg Tab 40 Mg PO HS 09/07/17 Reported Protonix (Pantoprazole Sodium) 40 Mg Tab 40 Mg PO QAM 09/07/17 Reported Vital Signs Weight (Kilograms): 141.82 Height (Feet): 5 Height (Inches): 3 Physical Exam General Appearance: WD/WN Respiratory/Chest: Respiratory effort: no dyspnea Cardiovascular: Apical Impulse: not displaced Abdomen: Bowel Sounds: normal Inspection & Palpation: soft Assessment and Plan EGD for dysphagia
--- NOTE | 2017-12-11 09:04 | GI REPORT ---
Patient Name: Zoey Lawton Procedure Date: 12/11/2017 8:38 AM Date of : 1975 Admit Type: Outpatient Age: 42 Gender: Female Attending MD: Smith Shahid MD Procedure: Upper GI endoscopy Providers: Smith Shahid MD Referring MD: Arnol Mcclendon Indications: Dysphagia Medicines: Monitored Anesthesia Care Complications: No immediate complications. Estimated blood loss: None. Estimated Blood Loss: Estimated blood loss: none. Procedure: Pre-Anesthesia Assessment: - Pre-Anesthesia Assessment: - Prior to the procedure, a History and Physical was performed, and patient medications, allergies and sensitivities were reviewed. The patient's tolerance of previous anesthesia was reviewed. Please see [facility] for complete details. - The risks and benefits of the procedure and the sedation options and risks were discussed with the patient. All questions were answered and informed consent was obtained. - Patient identification and proposed procedure were verified prior to the procedure by the physician and the nurse. The procedure was verified in the pre-procedure area in the procedure room. After obtaining informed consent, the endoscope was passed carefully and meticuously under direct vision and only advanced when the lumen was clearly identified, C02 insuflation was utilized throughout the entirity of the procedure. Throughout the procedure, the patient's blood pressure, pulse, and oxygen saturations were monitored continuously. After obtaining informed consent, the endoscope was passed under direct vision. Throughout the procedure, the patient's blood pressure, pulse, and oxygen saturations were monitored continuously. The scope was introduced through the mouth, and advanced to the second part of duodenum. The upper GI endoscopy was accomplished without difficulty. The patient tolerated the procedure well. Findings: A hiatal hernia was present. A moderate Schatzki ring (acquired) was found in the lower third of the esophagus. A TTS dilator was passed through the scope. Dilation with a 15-16.5-18 mm balloon dilator was performed to slowly and incrementally only to 15 mm. The dilation site was examined and showed complete resolution of luminal narrowing. There was an appropriate and uncomplicated mucosal defect that was observed for several minutes to ensure that there was no bleeding or complication. The entire examined stomach was normal. The examined duodenum was normal. Impression: - Hiatal hernia. - Moderate Schatzki ring. Dilated. - Normal stomach. - Normal examined duodenum. - No specimens collected. Recommendation: - Discharge patient to home (with escort). - Return to referring physician as previously scheduled. - Use Protonix (pantoprazole) 40 mg PO BID for 2 months. - Repeat upper endoscopy PRN for retreatment. Smith Shahid MD 12/11/2017 9:04:10 AM This report has been signed electronically. Note Initiated On: 12/11/2017 8:38 AM Number of Addenda: 0 I attest to the content of the Intraoperative Record and orders documented therein, exceptions below {[id number]}
--- NOTE | 2017-12-11 09:06 | Discharge Instructions ---
Endoscopy Patient Instructions Date / Procedure(s) Performed December 11, 2017. EGD Allergy Information Coded Allergies: Cortisone (Verified Allergy, Severe, THROAT SWELLING,HIVES, 12/11/17) Penicillins (Verified Allergy, Intermediate, throat swelling, 12/11/17) Sumatriptan (Verified Allergy, Unknown, PRESSURE IN HEAD, , 12/11/17) Discharge Date / Findings December 11, 2017. Stenosis at the bottom of your esophagus, this was carefully stretched. I would like to increase your Protonix to 40mg twice daily for the next two months (Rx was given) Please eat a soft diet for the next 24-48 hrs, no hard food,chips, etc Medication Instructions Increase your Protonix to 40 mg twice daily Provider Instructions Activity Restrictions - No exercising or heavy lifting for 24 hours. - Do not drink alcohol the day of the procedure. - Do not drive a car or operate machinery until the day after the procedure. - Do not make any important decisions or sign important papers in 24 hours after the procedure. Following Day: - Return to full activity which may include returning to work/school. Diet Start your diet with liquids and light foods (jello, soup, juice, toast). Then eat your usual diet if not nauseated. Treatment For Common After Affects For mild abdominal pain, bloating, or excessive gas: - Rest - Eat lightly - Lie on right side Follow-Up Information Follow-up with Dr. Arnol Mcclendon as scheduled Anesthesia Information What You Should Know You have had a procedure that required some medicine to reduce anxiety and discomfort. This treatment is called moderate sedation. After receiving the treatment, you may be sleepy, but you will be able to breathe on your own. The effects of the treatment may last for several hours. Follow these instructions along with Activity/Diet recommendations noted above: * Do NOT do anything where dizziness or clumsiness would be dangerous. * Rest quietly at home today, then you can be up and about tomorrow. * Have a responsible person stay with you the rest of today. * You may have had an I.V. today. If so, you may take the dressing off later today. Recommendations Call your doctor if: * Trouble breathing * Continuous vomiting for more than 24 hours * Temperature above 101 degrees * Severe abdominal pain or bloating * Pain not relieved by pain medicine ordered * There is increased drainage or redness from any incision * A large amount of rectal bleeding greater than 2-3 tablespoons. (If you had a polyp/s removed or have hemorrhoids, a small amount of blood - from the rectum is to be expected.) * You have any unanswered questions or concerns. IN THE EVENT OF A SERIOUS EMERGENCY, GO TO THE NEAREST EMERGENCY ROOM Your discharge instructions were prepared by provider Smith Shahid. Patient Instructions Signature Page Zoey Lawton Patient (or Guardian) Signature/Date: I have read and understand the instructions given to me by my caregivers. Caregiver/RN/Doctor Signature/Date: The above-named patient and/or guardian has received patient instructions on this date. + Original Patient Signature Page (only) stays with chart. Please make copy for patient.
--- NOTE | 2017-12-11 09:12 | Anesthesiology Progress Note ---
Anesthesia Post Op Note Date & Time December 11, 2017 at 09:12 Vital Signs Pain Intensity: 0 Vital Signs Past 12 Hours Date Time Temp Pulse Resp B/P (MAP) Pulse Ox O2 Delivery O2 Flow Rate FiO2 12/11/17 08:29 36.7 75 18 156/84 (108) 97 Room Air Notes Mental Status: alert / awake / arousable, participated in evaluation Pt Amnestic to Procedure: Yes Nausea / Vomiting: adequately controlled Pain: adequately controlled Airway Patency, RR, SpO2: stable & adequate BP & HR: stable & adequate Hydration State: stable & adequate Anesthetic Complications: no major complications apparent
[2017-12-11 09:35] VITALS: BP 156/88; PULSE 65; O2SAT 100
== END | disposition home or self-care (01) ==
LOC: C.GI 07:50
PROVIDERS: ATTEND Internal Medicine
DX: R13.10 Dysphagia, unspecified (principal); K44.9 Diaphragmatic hernia without obstruction or gangrene; K22.2 Esophageal obstruction; G47.33 Obstructive sleep apnea (adult) (pediatric); I10 Essential (primary) hypertension; E66.9 Obesity, unspecified; Z68.43 Body mass index [BMI] 50.0-59.9, adult; Z88.0 Allergy status to penicillin; Z88.8 Allergy status to other drugs, medicaments and biological substances; Z98.890 Other specified postprocedural states; Z79.899 Other long term (current) drug therapy